=== PATIENT | female | born 1970 | race Caucasian/White ===

== ENCOUNTER 2024-02-04 21:08 | Emergency (ER) | payer MEDICAID ==
[~2024-02-04] VITALS: Ht 157.5 cm; Wt 56.8 kg
[2024-02-04 21:38] VITALS: TEMP 98.4
[2024-02-05 03:00] VITALS: BP 129/82; PULSE 55; RESP 17; O2SAT 96
[2024-02-05] MEDS ORDERED: SACU1TAB4 PO (03:20)
[2024-02-05] MEDS ORDERED: FURO80TA3 PO (03:20)
[2024-02-05] MEDS: sacubitril/valsartan 24mg-26mg tablet PO STA (03:54)
[2024-02-05] MEDS: furosemide 20MG tablet PO ONE (03:58)
== END 2024-02-05 04:08 | disposition home or self-care (01) ==
LOC: ER 21:10
DX: I10 Essential (primary) hypertension (principal); Z76.0 Encounter for issue of repeat prescription; Z88.0 Allergy status to penicillin
CPT/HCPCS: 99281; 99283

== ENCOUNTER 2024-03-08 21:09 | Emergency (ER) | payer MEDICAID ==
[~2024-03-08] VITALS: Ht 154.9 cm; Wt 54.1 kg
[~2024-03-08 21:09] MED LIST: FURO80TA3 PO; SACU1TAB4 PO
[2024-03-08 21:12] VITALS: BP 154/93; PULSE 78; RESP 16; TEMP 98.3; O2SAT 97
[2024-03-08] MEDS ORDERED: SACU1TAB4 PO (21:35)
[2024-03-08] MEDS ORDERED: FURO80TA3 PO (21:35)
[2024-03-08] MEDS ORDERED: ROSU5TAB43 PO (21:35)
[2024-03-08] MEDS ORDERED: SPIR25TA5 PO (21:35)
[2024-03-08] MEDS ORDERED: APIX5TAB5 PO (21:35)
[2024-03-08] MEDS ORDERED: MIRT7.5T11 PO (21:35)
[2024-03-08] MEDS ORDERED: EMPA10TA PO (21:35)
== END 2024-03-08 21:49 | disposition home or self-care (01) ==
LOC: ER 21:09
DX: Z76.0 Encounter for issue of repeat prescription (principal); Z88.0 Allergy status to penicillin; Z79.899 Other long term (current) drug therapy
CPT/HCPCS: 99281

== ENCOUNTER 2024-04-09 13:22 | Emergency (ER) | payer MEDICAID ==
[~2024-04-09] VITALS: Ht 154.9 cm; Wt 52.7 kg
[~2024-04-09 13:22] MED LIST changes: +APIX5TAB5 PO; +EMPA10TA PO; +MIRT7.5T11 PO; +ROSU5TAB43 PO; +SPIR25TA5 PO
[2024-04-09] MEDS ORDERED: CARV3.122 PO (13:42)
[2024-04-09] MEDS ORDERED: AMIO200T67 PO (13:42)
[2024-04-09 13:55] VITALS: BP 134/78; PULSE 80; RESP 16; TEMP 98.2; O2SAT 99
== END 2024-04-09 13:57 | disposition home or self-care (01) ==
LOC: ER 13:22
DX: I50.9 Heart failure, unspecified (principal); Z76.0 Encounter for issue of repeat prescription; Z88.0 Allergy status to penicillin; Z79.899 Other long term (current) drug therapy
CPT/HCPCS: 99281

== ENCOUNTER 2024-07-03 03:57 | Emergency (ER) | payer MEDICAID ==
[~2024-07-03] VITALS: Ht 160 cm; Wt 59.1 kg
[~2024-07-03 03:57] MED LIST changes: +AMIO200T67 PO; +CARV3.122 PO; -ROSU5TAB43 PO; +ROSU5TAB51 PO
[2024-07-03 04:02] VITALS: TEMP 98.2
[2024-07-03] MEDS ORDERED: PERM60CR19 TOP (04:48)
[2024-07-03] MEDS ORDERED: IVER3TAB2 PO (04:48)
[2024-07-03 05:31] VITALS: BP 133/88; PULSE 88; RESP 20; O2SAT 98
== END 2024-07-03 05:50 | disposition home or self-care (01) ==
LOC: ER 03:57
DX: S20.469A Insect bite (nonvenomous) of unspecified back wall of thorax, initial encounter (principal); S60.562A Insect bite (nonvenomous) of left hand, initial encounter; S60.561A Insect bite (nonvenomous) of right hand, initial encounter; S50.862A Insect bite (nonvenomous) of left forearm, initial encounter; S50.861A Insect bite (nonvenomous) of right forearm, initial encounter; Z88.0 Allergy status to penicillin; Z79.899 Other long term (current) drug therapy; W57.XXXA Bitten or stung by nonvenomous insect and other nonvenomous arthropods, initial encounter; Y93.89 Activity, other specified; Y92.89 Other specified places as the place of occurrence of the external cause; Y99.8 Other external cause status
CPT/HCPCS: 99283